=== PATIENT | female | born 2000 | race Caucasian/White ===

== ENCOUNTER → 2020-02-17 | Outpatient (REF) | payer OTHER ==
[2020-02-18 13:09] LABS: CHLAMYDIA DNA AMPLIFICATION NEGATIVE (NEGATIVE); GC DNA AMPLIFICATION NEGATIVE (NEGATIVE)
== END ==
LOC: M SFHCLERA 15:50
PROVIDERS: ATTEND Nurse Practitioner Family
DX: N93.0 Postcoital and contact bleeding (principal)
CPT/HCPCS: 81025; 87070; 87086; 87661; G0463

== ENCOUNTER → 2022-03-07 | Outpatient (CLI) | payer MEDICAID ==
[2022-03-07 15:03] LABS: HEMATOCRIT 33.5 % (36.0-47.0); HEMOGLOBIN 11.5 g/dl (12.0-15.5); MEAN CORPUSCULAR HEMOGLOBIN 31.3 pg (27.0-33.0); MEAN CORPUSCULAR HGB CONC 34.3 g/dl (32.0-36.5); MEAN CORPUSCULAR VOLUME 91.3 fl (80.0-96.0); PLATELET COUNT, AUTOMATED 267 10^3/uL (150-450); RED BLOOD COUNT 3.67 10^6/uL (4.00-5.40); WHITE BLOOD COUNT 14.6 10^3/uL (4.0-10.0)
[2022-03-07 16:28] LABS: HEPATITIS C VIRUS ABY INDEX 0.1 INDEX (<0.8); HIV 1&2 SCREEN CENTAUR NEGATIVE (NEGATIVE)
[2022-03-07 16:39] LABS: GC DNA AMPLIFICATION NEGATIVE (NEGATIVE)
== END ==
LOC: M PLALAB 12:38
PROVIDERS: ATTEND Advanced Practice Midwife
DX: Z34.02 Encounter for supervision of normal first pregnancy, second trimester (principal)

== ENCOUNTER → 2022-03-15 | Outpatient (CLI) | payer MEDICAID, OTHER | LOC: M WHC 13:04 | PROVIDERS: ATTEND Advanced Practice Midwife | DX: Z36.89 Encounter for other specified antenatal screening (principal); Z3A.19 19 weeks gestation of pregnancy ==

== ENCOUNTER → 2022-04-01 | Outpatient (CLI) | payer OTHER | LOC: M PLALAB 12:49 | PROVIDERS: ATTEND Advanced Practice Midwife | DX: Z34.02 Encounter for supervision of normal first pregnancy, second trimester (principal); Z3A.00 Weeks of gestation of pregnancy not specified ==

== ENCOUNTER → 2022-05-05 | Outpatient (CLI) | payer OTHER ==
[2022-05-05 13:26] LABS: HEMATOCRIT 37.1 % (36.0-47.0); HEMOGLOBIN 12.3 g/dl (12.0-15.5); MEAN CORPUSCULAR HGB CONC 33.2 g/dl (32.0-36.5); MEAN CORPUSCULAR VOLUME 93.5 fl (80.0-96.0); PLATELET COUNT, AUTOMATED 245 10^3/uL (150-450); RED BLOOD COUNT 3.97 10^6/uL (4.00-5.40); WHITE BLOOD COUNT 15.8 10^3/uL (4.0-10.0)
== END ==
LOC: M PLALAB 09:33
PROVIDERS: ATTEND Advanced Practice Midwife
DX: Z36.89 Encounter for other specified antenatal screening (principal); Z36.9 Encounter for antenatal screening, unspecified; Z3A.21 21 weeks gestation of pregnancy

== ENCOUNTER → 2022-07-13 | Outpatient (REF) | payer OTHER | LOC: M SFHCWAGY 17:50 | PROVIDERS: ATTEND Specialist | DX: Z34.03 Encounter for supervision of normal first pregnancy, third trimester (principal) ==

== ENCOUNTER → 2022-07-25 | Outpatient (CLI) | payer OTHER ==
[~2022-07-25] VITALS: Ht 157.5 cm; Wt 92.3 kg
[~2022-07-25] MED LIST: ACET-683 PO; IBUP80TA PO; PRENTAB9 PO
[2022-07-25 18:49] VITALS: BP 143/85
[2022-07-25 19:40] VITALS: BP 139/86
[2022-07-25 20:29] LABS: BASO # 0.1 10^3/uL (0.0-0.2); BASO % 0.4 % (0.0-1.0); EOS # 0.1 10^3/uL (0.0-0.5); EOS % 0.5 % (0.0-3.0); HEMATOCRIT 35.4 % (36.0-47.0); HEMOGLOBIN 11.9 g/dl (12.0-15.5); MEAN CORPUSCULAR HEMOGLOBIN 30.3 pg (27.0-33.0); MEAN CORPUSCULAR HGB CONC 33.6 g/dl (32.0-36.5); MEAN CORPUSCULAR VOLUME 90.1 fl (80.0-96.0); MONO # 1.2 10^3/uL (0.0-0.8); MONO % 7.7 % (2.0-8.0); NEUTROPHILS # 11.8 10^3/uL (1.5-8.5); PLATELET COUNT, AUTOMATED 231 10^3/uL (150-450); RED BLOOD COUNT 3.93 10^6/uL (4.00-5.40); WHITE BLOOD COUNT 15.3 10^3/uL (4.0-10.0)
[2022-07-25 20:51] LABS: THYROXINE (T4) 11.5 UG/DL (4.5-12.0)
[2022-07-28 17:07] LABS: ANTI PARVO VIRUS LEVEL IGG 0.1 index (0.0-0.8); ANTI PARVO VIRUS LEVEL IgM 0.1 index (0.0-0.8); BETA-2 GLYCOPROTEIN I ABY IGA <9 (0-25); BETA-2 GLYCOPROTEIN I ABY IGG <9 (0-20); BETA-2 GLYCOPROTEIN I ABY IGM <9 (0-32); CARDIOLIPIN IGA ANTIBODY <9 APL U/mL (0-11); CARDIOLIPIN IGG ANTIBODY <9 GPL U/mL (0-14); CARDIOLIPIN IGM ANTIBODY <9 MPL U/mL (0-12)
== END ==
LOC: M LDO 18:23
PROVIDERS: ATTEND Advanced Practice Midwife
DX: O36.8130 Decreased fetal movements, third trimester, not applicable or unspecified (principal); O36.4XX9 Maternal care for intrauterine death, other fetus; Z3A.38 38 weeks gestation of pregnancy

== ENCOUNTER 2022-07-26 17:08 | Inpatient (IN) | payer OTHER ==
[~2022-07-26] VITALS: Ht 157.5 cm; Wt 91.6 kg
[2022-07-26] MEDS ORDERED: PRENTAB9 PO (17:23)
[2022-07-26 17:28] VITALS: BP 130/69
[2022-07-26] MEDS ORDERED: HOME MED LIST COMPLETE! XX SCH (17:35)
[2022-07-26] MEDS ORDERED: METHYLERGONOVINE MALEATE 0.2 MG/ML VIAL (J2210) IM PRN (18:10)
[2022-07-26] MEDS ORDERED: miSOPROStol 50MCG 1/2 TABLET PO ONE ×2 (18:10→22:50)
[2022-07-26] MEDS ORDERED: TRANEXAMIC ACID INJection 1,000 MG in NS 100 ML IV PRN (18:10)
[2022-07-26] MEDS ORDERED: LACTATED RINGER'S 1000 ML IV PRN (18:10)
[2022-07-26] MEDS ORDERED: CARBOPROST TROMETHAMINE 250 MCG/ML AMP IM PRN (18:10)
[2022-07-26] MEDS ORDERED: LR 1,000 ML IV SCH (18:10)
[2022-07-26] MEDS ORDERED: OXYTOCIN DRIP 30 UNITS in IV 1 EA IV PRN ×4 (18:10)
[2022-07-26] MEDS ORDERED: LORazepam 1 MG TAB PO PRN (18:10)
[2022-07-26] MEDS ORDERED: zolPIDEM TARTRATE 5 MG TAB PO PRN (18:10)
[2022-07-26 18:55] LABS: BASO # 0.1 10^3/uL (0.0-0.2); BASO % 0.4 % (0.0-1.0); EOS # 0.1 10^3/uL (0.0-0.5); EOS % 0.5 % (0.0-3.0); HEMATOCRIT 35.4 % (36.0-47.0); HEMOGLOBIN 11.8 g/dl (12.0-15.5); LYMPH # 1.9 10^3/uL (1.5-5.0); LYMPH % 13.7 % (24.0-44.0); MEAN CORPUSCULAR HEMOGLOBIN 30.1 pg (27.0-33.0); MEAN CORPUSCULAR HGB CONC 33.3 g/dl (32.0-36.5); MEAN CORPUSCULAR VOLUME 90.3 fl (80.0-96.0); MONO # 1.5 10^3/uL (0.0-0.8); MONO % 10.5 % (2.0-8.0); NEUTROPHILS # 10.2 10^3/uL (1.5-8.5); NEUTROPHILS % 73.4 % (36.0-66.0); PLATELET COUNT, AUTOMATED 254 10^3/uL (150-450); RED BLOOD COUNT 3.92 10^6/uL (4.00-5.40); WHITE BLOOD COUNT 13.9 10^3/uL (4.0-10.0)
[2022-07-26 19:15] VITALS: BP 133/73
[2022-07-26 20:01] LABS: THYROID STIMULATING HORMONE 1.46 uIU/ML (0.358-3.740); THYROXINE (T4) 12.4 UG/DL (4.5-12.0)
[2022-07-26 21:51] VITALS: BP 137/72
[2022-07-26 22:57] VITALS: BP 128/61
[2022-07-27] VITALS (11 sets, daily range): BP systolic 107–150; BP diastolic 50–85
[2022-07-27] MEDS ORDERED: miSOPROStol 50MCG 1/2 TABLET PO ONE (03:15)
[2022-07-27] MEDS ORDERED: miSOPROStol 100MCG TABLET PO ONE ×2 (09:05→14:10)
[2022-07-27] MEDS ORDERED: LR 1,000 ML IV SCH (19:35)
[2022-07-27] MEDS ORDERED: OXYTOCIN DRIP 30 UNITS in IV 1 EA IV SCH (19:35)
[2022-07-28] VITALS (27 sets, daily range): BP systolic 114–165; BP diastolic 55–96
[2022-07-28] MEDS ORDERED: BUTORPHANOL 2 MG/ML INJ (J0595) IV ONE (00:45)
[2022-07-28] MEDS ORDERED: PROMETHAZINE 25MG/ML 1ML VIAL IV ONE (00:45)
[2022-07-28] MEDS ORDERED: ONDANSETRON 4MG 2ML VIAL IV PRN (02:35)
[2022-07-28] MEDS ORDERED: FENTANYL 2MCG/ML ROPIVACAINE 0.2% IN 0.9% NACL 100ML IVBAG As Ordered ONE (02:35)
[2022-07-28] MEDS ORDERED: NALOXONE INJ 0.4MG/1ML VIAL (J2310 PER 1MG) IV PRN (02:35)
[2022-07-28] MEDS ORDERED: EPIDURAL/PCA KEYS XX PRN (02:35)
[2022-07-28] MEDS ORDERED: diphenhydrAMINE 50MG/ML VIAL (J1200) IV PRN (02:35)
[2022-07-28] MEDS ORDERED: ePHEDrine SULFATE 25 MG/5 ML(5MG/ML) SYRINGE IVP PRN (02:35)
[2022-07-28] MEDS ORDERED: FENTANYL/ROPIVACAINE/NACL BAG 100 ML EPIDURAL SCH (02:35)
[2022-07-28] MEDS ORDERED: LR 500 ML IV PRN (02:35)
[2022-07-28] MEDS ORDERED: DOCUSATE SODIUM 100MG CAPSULE PO PRN (06:25)
[2022-07-28] MEDS ORDERED: OXYTOCIN DRIP 30 UNITS in IV 1 EA IV SCH ×4 (06:25)
[2022-07-28] MEDS ORDERED: DIBUCAINE 1% OINTMENT 30GM TOP PRN (06:25)
[2022-07-28] MEDS ORDERED: ACETAMINOPHEN 500 MG TAB PO PRN (06:25)
[2022-07-28] MEDS ORDERED: IBUPROFEN 800 MG TAB PO PRN (06:25)
[2022-07-28] MEDS ORDERED: ACETAMINOPHEN TAB 650MG DOSE (2X325MG) PO PRN (06:25)
[2022-07-28] MEDS ORDERED: IBUPROFEN 600MG TAB PO PRN (06:25)
[2022-07-28] MEDS ORDERED: RHOGAM 300 MCG (1500 IU) INJ (J2790) IM SCH (06:25)
[2022-07-28] MEDS ORDERED: PRENATAL VITAMINS CHEWABLE TABLET PO SCH (09:00)
[2022-07-28 13:06] LABS: PTT LUPUS TYPE ANTICOAG SCREEN 0.9 (0-1.2)
[2022-07-28] MEDS ORDERED: ACET-683 PO (15:05)
[2022-07-28] MEDS ORDERED: IBUP80TA PO (15:05)
[2022-07-30] MEDS ORDERED: MEASLES,MUMPS,RUBELLA VACCINE INJ (MMR-II) (90707) SC.IMMUN ONE (09:00)
[2022-07-30 10:08] LABS: ANTI PARVO VIRUS LEVEL IGG 0.1 index (0.0-0.8); ANTI PARVO VIRUS LEVEL IgM 0.1 index (0.0-0.8); BETA-2 GLYCOPROTEIN I ABY IGA <9 (0-25); BETA-2 GLYCOPROTEIN I ABY IGG <9 (0-20); BETA-2 GLYCOPROTEIN I ABY IGM <9 (0-32); CARDIOLIPIN IGA ANTIBODY <9 APL U/mL (0-11); CARDIOLIPIN IGG ANTIBODY <9 GPL U/mL (0-14); CARDIOLIPIN IGM ANTIBODY <9 MPL U/mL (0-12)
== END 2022-07-28 15:30 | disposition home or self-care (01) | DRG 541 ==
LOC: M LDI 17:08
PROVIDERS: ADMIT Obstetrics & Gynecology; ATTEND Obstetrics & Gynecology
PROC: 3E0P7GC Introduction of Other Therapeutic Substance into Female Reproductive, Via Natural or Artificial Opening (ICD-10-PCS; 2022-07-27)
PROC: 10E0XZZ Delivery of Products of Conception, External Approach (ICD-10-PCS; principal; 2022-07-28)
PROC: 10D17Z9 Manual Extraction of Products of Conception, Retained, Via Natural or Artificial Opening (ICD-10-PCS; 2022-07-28)
PROC: 10907ZC Drainage of Amniotic Fluid, Therapeutic from Products of Conception, Via Natural or Artificial Opening (ICD-10-PCS; 2022-07-28)
DX: O36.4XX0 Maternal care for intrauterine death, not applicable or unspecified (principal); Z37.1 Single stillbirth; O69.1XX0 Labor and delivery complicated by cord around neck, with compression, not applicable or unspecified; Z3A.38 38 weeks gestation of pregnancy; O73.0 Retained placenta without hemorrhage